=== PATIENT | male | born 1985 | race Two or more races ===

== ENCOUNTER 2022-07-14 08:23 | Emergency (ER) | payer BC, OTHER ==
[~2022-07-14] VITALS: Ht 170.2 cm; Wt 81.8 kg
[2022-07-14 08:54] VITALS: BP 119/79
[2022-07-14] MEDS ORDERED: LIDOCAINE 1% HCL (LOCAL ANESTH.) INJ 20ML MDV IJ ONE (09:15)
== END 2022-07-14 09:38 | disposition home or self-care (01) ==
LOC: ER 08:25
DX: L02.31 Cutaneous abscess of buttock (principal)
CPT/HCPCS: 10060; 87077; 87186; 87205

== ENCOUNTER 2022-07-16 08:00 | Emergency (ER) | payer BC ==
[~2022-07-16] VITALS: Ht 170.2 cm; Wt 82.1 kg
[2022-07-16 10:26] VITALS: BP 206/69
== END 2022-07-16 12:36 | disposition home or self-care (01) ==
LOC: ER 08:00
DX: T81.49XD Infection following a procedure, other surgical site, subsequent encounter (principal)